=== PATIENT | female | born 1940 | race Caucasian/White ===

== ENCOUNTER 2016-07-06 14:01 | Emergency (ER) | payer OTHER ==
--- NOTE | 2016-07-06 14:31 | DIAGNOSTIC IMAGING REPORT ---
PROCEDURE: XR CHEST 1 VIEW INDICATION: TACHYCARDIA TECHNIQUE: Portable AP view 02:18 p.m. COMPARISON: None. FINDINGS: There is cephalization of the pulmonary vasculature. No focal infiltrates. The heart size is normal. IMPRESSION: 1. Cephalization of the pulmonary vasculature suggesting mild CHF.
--- NOTE | 2016-07-06 16:42 | ED NURSING NOTES ---
Clinical Report - Nurses [facility] [address] [place] [address] 07/06/2016 14:03 Patient: LILLIAM MELTON TRIAGE Triage time 14:Jul 06 2016. Acuity: LEVEL 3. Chief Complaint: (HBP and Tachycardia). Alert. BELKIS COMA SCORE: Kunkle Coma Scale: 15- eyes open spontaneously (4); best verbal response- oriented x 4 (5); best motor response- obeys commands (6). --14:17 Elvin Gandhi 14:02 07/06/16. BP: 196/135. HR: 147. RR: 16. O2 saturation: 100%. Temp: 98.2 F (oral). Pain level now: 0/10. --14:17 Elvin Gandhi. Weight: 91.6 kg measured. Height/Length: 67 inches Per Patient. BMI: 31.7. --14:06 Elvin Gandhi. Medications Levothyroxine Sodium 70 mcg, DAILY. --14:10 Nathanael Bertrand R.N. CITALOPRAM 40MG HS. Gabapentin Oral 300 mg, 3x a day. Hydrochlorothiazide Oral 25 mg, daily. Hydrocodone-Acetaminophen Oral, as needed. Omeprazole Oral 20 mg, daily. --14:10 Elvin Gandhi Atorvastatin Calcium Oral. --17:07 Nathanael Bertrand RRafalN. Donepezil HCl Oral (Tablet 5 mg) 1 tablet, daily. --17:11 Nathanael Bertrand R.NRafal The following entry was struck and corrected by Nathanael Bertrand R.N., 17:10 (07/06/16) Reason for correction - other(correction). <<STRICKEN ENTRY-- Levothyroxine Sodium 75MCG, DAILY. --14:10 Elvin Gandhi --END STRIKE>> The following entry was struck by Nathanael Bertrand R.N., 17:08 (07/06/16) Reason - other. <<STRICKEN ENTRY-- Simvastatin Oral 40 mg, daily. --14:10 Elvin Gandhi --END STRIKE>>. Allergies Iodine. Penicillins. Shellfish-derived Products. Sulfa Drugs. --14:10 Elvin Gandhi. History Historian: patient. Arrived (MEDIC 64) and accompanied by family. Primary physician (none). ( Tachycardia. When a visiting home health pediatric physical therapy assistant paid a visit today, found her BP elevated and pt in tachycardia, she called EMS.). This started just prior to arrival and today. Treatment COMMUNITY HEALTH CONSULTANT: (IV start in the field by EMS). PAST MEDICAL HX: Hypertension. SURGERY HX: Had hysterectomy. SOCIAL HX: Former smoker, end date 1966. No alcohol use or drug use. No infectious disease exposure. ABUSE ASSESSMENT: No report of abuse. FALL RISK ASSESSMENT: Fall risk assessment completed. No fall risk identified. NUTRITIONAL RISK ASSESSMENT: The nutritional risk assessment revealed no deficiencies. FUNCTIONAL ASSESSMENT: Functional assessment: no impairments noted. LEARNING NEEDS ASSESSMENT: The learning needs assessment revealed no barriers. SKIN INTEGRITY ASSESSMENT: Skin integrity risk assessment completed. No skin integrity risk identified. --14:17 Elvin Gandhi. PROBLEMS: Thyroid Disease. --14:11 Elvin Gandhi. Interventions ID and allergy band on patient. To treatment room. --14:17 Elvin Gandhi. PHYSICAL ASSESSMENT To room via stretcher. GENERAL / NEURO / PSYCH: Alert. Oriented X 4. HEENT: No facial asymmetry noted. Mucous membranes are pink. RESPIRATORY: Respirations not labored. CVS: Cardiac rhythm: sinus tachycardia. GI / : Abdomen nontender. SKIN: Skin intact. Skin is warm and dry. Normal skin turgor. --14:18 Elvin Gandhi. NURSING PROGRESS NOTES teletypesetter monitor, pulse oximeter and NIBP monitor placed on patient; teletypesetter monitor- Lead II and V1; monitor alarms on. Reassurance given to the patient. Patient identifiers checked. Call light placed in reach. Side rails up x 2. Bed placed in lowest position. Brakes of bed on. Patient ready for evaluation- chart flagged and ED physician notified. --14:19 Elvin Gandhi 14:10 07/06/2016 Site #1 started prior to arrival by EMS via IV in the left forearm with an 20g angiocath, with aseptic technique and good blood return. --14:25 Elvin Gandhi 14:12 07/06/2016 Started bag #1 1000 mL IV Fluids IV NS (Saline); at 1000 mL/hr over 4 hour(s) via site #1 via IV pump. Allergies verified and confirmed 5 rights. IV patency established. IV site checked: no pain, redness, or swelling. IV flushed thoroughly pre- and post-medication administration (Field start bag by EMS). Elvin Gandhi --14:27 Evlin Gandhi 14:25 07/06/2016 Metoprolol (Metoprolol Tartrate) IVP 5 mg given over 2 minute(s) via site #1. Allergies verified and confirmed 5 rights. IV patency established. IV site checked: no pain, redness, or swelling. IV flushed thoroughly pre- and post-medication administration. IVP given by RN. Elvin Gandhi --14:26 Elvin Gandhi EKG time: (1405). --14:31 Melonie Arias ER Tech1 EKG was ordered, performed by a tech and shown to the ED physician. --14:31 Melonie Arias ER Tech1 14:45 07/06/2016 IV Fluids IV NS Bag Change: bag #2 infused. Total amount infused: 1000. STARTED bag #2 at 1000 mL/hr via IV pump. Confirmed 5 rights. IV patency established. IV site checked: no pain, redness, or swelling. IV flushed thoroughly. --14:50 Nathanael Bertrand, RRafalNRafal 14:46 07/06/2016 Metoprolol (Metoprolol Tartrate) IVP 5 mg given over 2 minute(s) via site #1. Allergies verified and confirmed 5 rights. IV patency established. IV site checked: no pain, redness, or swelling. IV flushed thoroughly pre- and post-medication administration. IVP given by RN. --14:51 Nathanael Bertrand R.N. 15:32 07/06/2016 Metoprolol (Metoprolol Tartrate) IVP 5 mg given over 5 minute(s) via site #1. Allergies verified and confirmed 5 rights. IV patency established. IV site checked: no pain, redness, or swelling. IV flushed thoroughly pre- and post-medication administration. IVP given by RN. --15:32 Janice Quinteros R.N. 15:45 07/06/2016 Metoprolol (Metoprolol Tartrate) IVP 5 mg given over 2 minute(s) via site #1. Allergies verified and confirmed 5 rights. IV patency established. IV site checked: no pain, redness, or swelling. IV flushed thoroughly pre- and post-medication administration. IVP given by RN. --21:35 Nathanael Bertrand R.N. 15:45 07/06/2016 IV Fluids IV NS Discontinued: bag #2 infused. Total amount infused: 1000 mL. IV patency established. IV site checked: no pain, redness, or swelling. IV flushed thoroughly. --21:37 Nathanael Bertrand R.N. 16:47 07/06/2016 Diltiazem IVP 10 mg given over 2 minute(s) via site #1. Allergies verified and confirmed 5 rights. IV patency established. IV site checked: no pain, redness, or swelling. IV flushed thoroughly pre- and post-medication administration. IVP given by RN. --17:02 Nathanael Bertrand R.N. 16:50 07/06/16. EKG time: (1647). EKG was performed by a tech and shown to the ED physician. --16:50 Robert Magallon 17:06 07/06/2016 Nitrofurantoin PO Capsules 100 mg given. Allergies verified and confirmed 5 rights. --17:06 Nathanael Bertrand R.N. 17:06 07/06/2016 Aspirin PO Tablets 325 mg given. Allergies verified and confirmed 5 rights. --17:06 Nathanael Bertrand R.N. 17:20 07/06/2016 Site #1 removed upon discharge. Catheter intact. Manual pressure, pressure dressing and bandaid applied. --21:38 Nathanael Bertrand R.N. DISPOSITION / DISCHARGE Departure time: 1730. --21:29 Nathanael Bertrand R.N. 17:25 07/06/16. BP: 188/96. HR: 74. RR: 16. O2 saturation: 98%. Temp: 98.2 F (oral). Pain level now: 0/10. --21:31 Nathanael Bertrand R.N. Condition at departure: improved. No learning barriers present. Discharge instructions provided and reviewed with the patient, spouse and family. Reviewed medication(s) (prescription given to pt. continue taking your usual prescribed medications). Reviewed referral to family practice for followup. Patient, spouse and family verbalized understanding. Written instructions provided in Welsh. The patient was discharged by the physician. She was discharged home and accompanied by family. She left the Emergency Department in a wheelchair and via private vehicle. Family member driving. --21:33 Nathanael Bertrand R.N. Locked/Released at 07/06/2016 21:38 by Nathanael Bertrand R.N.
--- NOTE | 2016-07-06 16:42 | ED ORDER SUMMARY ---
..... Patient: LILLIAM MELTON OrderSheet [facility] VisitID: [id number] [address] [place] [address] 76y, F Registration Date/Time: 07/06/2016 ORDER SHEET Weight: 91.6 kg (measured) Allergies: Iodine, Penicillins, Shellfish-derived Products, Sulfa Drugs GENERAL ORDERS: Chest 1V Urgent (14:05 07/06/2016 Bill Bray) (Ack 14:06 Ranner) (14:48 Ricarda R.N.) Senior Controls Analyst (Continuous) (tachycardia) (14:05 07/06/2016 Bill Bray) (Ack 14:06 Ranner) (14:06 STERLINGoerner) CBC w Diff Urgent (14:05 07/06/2016 Bill Bray) (Ack 14:06 Jaylin) (14:45 KHoerner) CMP Urgent (14:05 07/06/2016 Bill Bray) (Ack 14:06 Ranner) (14:45 KHoerner) UA-Culture if indicated Urgent (14:05 07/06/2016 Bill Bray) (Ack 14:06 Jaylin) (14:45 KHoerner) PT with INR Urgent (14:05 07/06/2016 Bill Bray) (Ack 14:06 Ranner) (14:45 KHoerner) Troponin-I Urgent (14:05 07/06/2016 Bill Bray) (Ack 14:06 Ranner) (14:45 KHoerner) TSH Urgent (14:05 07/06/2016 Bill Bray) (Ack 14:06 Jaylin) (14:45 KHoerner) Pulse oximeter (14:05 07/06/2016 Bill Bray) (Ack 14:06 Jaylin) (14:06 STERLINGoerner) EKG - ER Stat (14:05 07/06/2016 Bill Bray) (Ack 14:06 Jaylin) (14:06 STERLINGoerner) EKG - ER Repeat Stat (16:41 07/06/2016 Bill Bray) (Ack 16:42 Jaylin) (16:50 Jaylin) MEDICATION ORDERS: Nitrofurantoin PO 100 mg (NOW) (16:37 07/06/2016 Bill Bray) (17:06 Ricarda R.N.) Aspirin PO 325 mg (Do not crush or chew, NOW) (16:50 07/06/2016 Bill Bray) (17:06 Ricarda R.N.) IV FLUIDS: IV NS : initial bolus 500 mL (1000 mL/hr), then none - for X1 (NOW) (14:05 07/06/2016 Bill Bray) (14:27 Haily) Metoprolol IV 5 mg (HIGH ALERT MEDICATION, NOW) (14:24 07/06/2016 Haily verbal order read back to Bill Bray) (14:26 Haily) Metoprolol IV 5 mg (HIGH ALERT MEDICATION, NOW) (14:50 07/06/2016 Ricarda Gutiérrez verbal order read back to Bill Bray) (14:51 Ricarda Lemus.) Metoprolol IV 5 mg (HIGH ALERT MEDICATION, NOW) (15:17 07/06/2016 Bill Bray) (Ack 15:25 Parminder R.NRafal) (15:32 Parminder WestfallN.) Metoprolol IV 5 mg (HIGH ALERT MEDICATION, NOW) (15:37 07/06/2016 Bill Bray) (21:35 Ricarda Hu.N.) Diltiazem IV 10 mg (HIGH ALERT MEDICATION, NOW) (16:09 07/06/2016 Bill Bray) (17:02 Ricarda R.N.) ORDER SHEET NOTES: [Electronically signed by Nathanael Bertrand R.N. (21:38 07/06/2016)] [Electronically signed by Luis Dalton Dr. (17:25 07/10/2016)] [Electronically locked/signed by Nathanael Bertrand R.N. (21:38 07/06/2016)]
--- NOTE | 2016-07-06 16:42 | ED CLINICAL REPORT ---
Clinical Report - Physicians/Mid Levels [facility] [address] [place] [address] 07/06/2016 14:03 Patient: LILLIAM MELTON Arrived- By ambulance. Historian- patient and EMS personnel. HISTORY OF PRESENT ILLNESS Chief Complaint: FAST HEART RATE. Modifying factors. Not worsened by anything. Not relieved by anything. It is described as (fast heart rate). This started unknown and is still present. It was abrupt in onset and has been constant but is not gone now. No chest pain or discomfort, difficulty breathing, sweating episodes or fainting episodes. No dizziness, tingling or muscle spasms. ( reports no symptoms. states that she didn't even know her heart was beating so fast.). Similar symptoms previously: None. Recent medical care: Not recently seen/assessed. REVIEW OF SYSTEMS No fever, chills, nausea or vomiting. All systems otherwise negative, except as recorded above. PAST HISTORY See nurses notes. Medications: CITALOPRAM 40MG HS. Gabapentin Oral 300 mg, 3x a day. Hydrochlorothiazide Oral 25 mg, daily. Hydrocodone-Acetaminophen Oral, as needed. Levothyroxine Sodium 75MCG, DAILY. Omeprazole Oral 20 mg, daily. Simvastatin Oral 40 mg, daily. Allergies: Iodine. Penicillins. Shellfish-derived Products. Sulfa Drugs. SOCIAL HISTORY Former smoker. No alcohol use or drug use. Is a local resident. ADDITIONAL NOTES The nursing notes have been reviewed. PHYSICAL EXAM Vital Signs: 07/06/2016 14:02 BP: 196/135. HR: 147. RR: 16. O2 saturation: 100%. Temp: 98.2 F. Pain level now: 0/10. Oxygen saturation normal. Appearance: Alert. Oriented X3. No acute distress. Eyes: Pupils equal, round and reactive to light. Eyes normal inspection. ENT: Ears normal. Nose normal. Neck: Normal inspection. Neck supple. CVS: Tachycardia. Abnormal rhythm. Heart sounds normal. Pulses normal. Respiratory: No respiratory distress. Breath sounds normal. Chest nontender. No rales, rhonchi or wheezes. Abdomen: Soft and nontender. Bowel sounds normal. No mass. Skin: Skin warm and dry. Normal skin color. No rash. Normal skin turgor. Extremities: Extremities exhibit normal ROM. No lower extremity edema. Neuro: Oriented X 3. No motor deficit. No sensory deficit. LABS, X-RAYS, AND EKG EKG: Narrow-complex tachycardia (SVT 147). Normal QRS complex. Normal axis. Normal ST and T waves, QT and QTc. Changes present when compared to prior EKG. (only SVT is new on EKG. other parameters appear unchanged.). The study has been interpreted contemporaneously. The study has been independently viewed by me. The EKG appears to be a good tracing. EKG #2: No acute ischemia. Narrow-complex tachycardia. Atrial flutter. Normal QRS complex. Normal axis. Normal ST and T waves, QT and QTc. The study has been interpreted contemporaneously by me. The study has been independently viewed by me. The EKG appears to be a good tracing. (rate controlled.). Chest X-ray: (PROCEDURE: XR CHEST 1 VIEW INDICATION: TACHYCARDIA TECHNIQUE: Portable AP view 02:18 p.m. COMPARISON: None. FINDINGS: There is cephalization of the pulmonary vasculature. No focal infiltrates. The heart size is normal. IMPRESSION: 1. Cephalization of the pulmonary vasculature suggesting mild CHF.). Views: PA. The X-rays were independently viewed by me, interpreted by the radiologist and discussed with the radiologist. Laboratory Tests: UA-Culture if indicated: (BEBO: 07/06/2016 14:30) ( MsgRcvd 07/06/2016 15:07) Final results Test Result Flag Units (Reference) URINE COLOR STRAW URINE APPEARANCE CLEAR URINE GLUCOSE NEGATIVE (NEGATIVE) URINE BILIRUBIN NEGATIVE (NEGATIVE) URINE KETONE NEGATIVE (NEGATIVE) URINE SPECIFIC GRAVITY 1.010 (1.010-1.030) URINE PH 7.0 (5.0-8.0) URINE PROTEIN NEGATIVE (NEGATIVE) URINE UROBILINOGEN 0.2 EU/dL (0.2-1.0) URINE NITRITE NEGATIVE (NEGATIVE) URINE BLOOD NEGATIVE (NEGATIVE) URINE LEUK ESTERASE POSITIVE (NEGATIVE) URINE RBC 1-3 rbc/hpf (0-1) URINE WBC 10-15 wbc/hpf (0-1) URINE EPITHELIAL CELLS 1-3 EPI/hpf (0-5) URINE BACTERIA MODERATE (2+ TO 3+) (NONE SEEN) URINE COMMENT CULTURE INDICATED URINE CULTURES ARE SET-UP BASED ON THE FOLLOWING CRITERIA:POSITIVE NITRITEPOSITIVE LEUKOCYTE ESTERASEGREATER THAN 10 WHITE BLOOD CELLSMODERATE (2+) OR GREATER BACTERIA CBC w Diff: (BEBO: 07/06/2016 14:43) ( [facility] 07/06/2016 14:54) Final results Test Result Flag Units (Reference) WHITE BLOOD COUNT 7.1 K/uL (4.5-11.5) RED BLOOD COUNT 4.61 M/uL (4.00-5.20) HEMOGLOBIN 13.0 gm/dL (12.0-16.0) HEMATOCRIT 40.0 % (36.0-46.0) MEAN CELL VOLUME 87 fL (80-100) MEAN CORPUSCULAR HGB 28 pg (26-34) MEAN CORPUSCULAR HGB CONC 33 g/dL (31-37) RED CELL DISTRIBUTION WIDTH 14.5 % (11.6-14.8) PLATELET COUNT 337 K/uL (150-400) NEUTROPHIL % 63.2 % (50-75) LYMPH % 27.3 % (25-40) MONO % 6.4 % (3-14) EOSINOPHIL % 1.9 % (0-4) BASOPHIL % 1.2 % (0-2) PT with INR: (BEBO: 07/06/2016 14:43) ( [facility] 07/06/2016 15:06) Final results Test Result Flag Units (Reference) INR 1.0 (0.8-1.2) Low Intensity Therapy: INR 1.5-2.0 PT range 18.5-23.1Mod.Intensity Therapy: INR 2.0-3.0 PT range 23.1-31.5High Intensity Therapy: INR 2.5-3.5 PT range 27.4-35.5High Intensity Therapy 2: INR 3.0-4.0 PT range 31.5-39.3 CMP: (BEBO: 07/06/2016 14:43) ( [facility] 07/06/2016 15:30) Final results Test Result Flag Units (Reference) GLUCOSE 92 mg/dL (70-110) BUN 9 mg/dL (7-18) CREATININE 0.7 mg/dL (0.6-1.3) Estimated GFR >60 mL/min Estimated GFR- >60 mL/min Note: Persistent reduction over 3 months in eGFR<60 mL/min/1.73 m2 defines CKD. Patients with eGFR values>=60 mL/min/1.73 m2 may also have CKD if evidence ofpersistent proteinuria. Additional information may be foundat www.kidney.org. SODIUM 143 mmol/L (136-145) POTASSIUM 3.8 mmol/L (3.5-5.1) CHLORIDE 105 mmol/L (98-107) CARBON DIOXIDE 28 mmol/L (21-32) CALCIUM 8.6 mg/dL (8.5-10.1) TOTAL PROTEIN 7.4 g/dL (6.4-8.2) ALBUMIN 3.6 g/dL (3.3-5.0) BILIRUBIN, TOTAL 0.6 mg/dL (0.0-1.0) ALKALINE PHOSPHATASE 108 U/L (46-116) AST (SGOT) 16 U/L (15-37) ALT (SGPT) 17 U/L (12-78) TROPONIN I <0.05 ng/mL (0.00-1.5) TROPONIN REFERENCE RANGE:<0.1 NEGATIVE0.1-1.5 INDETERMINANT>1.5 POSITIVE THYROID STIMULATING HORMONE 5.004 H uIU/mL (0.30-3.74) Culture, Urine: (BEBO: 07/06/2016 14:30) ( MsgRcvd 07/08/2016 11:26) Final results Test Result Flag Units (Reference) CULTURE, URINE DATE: 07/08/16 NO GROWTH AT:: NO GROWTH AT 2 DAYS PRELIM REPORT: FINAL REPORT . PROGRESS AND PROCEDURES Course of Care: he patient is a pleasant 76-year-old female presenting for evaluation of rapid heart rate. On examination, patient has atrial fibrillation. EKG is obtained and noted to be atrial fibrillation with rapid ventricular response. Patientwill be evaluated with laboratory studies for evaluation of the patient's age fibrillation. No other abnormalities noted. Patient's vital signs are within normal limits. No evidence of hemodynamic instability at this time. Patient is agreeable to the treatment and plan. We'll monitor closely. Had long discussion with patient in regards to symptoms at this time. Rate control will be the goal at this time. on initial presentation, patient did not report having history of atrial fibrillation however on follow-up questioning, the patient does state that she has atrophic ablation. Do not fill patient is a candidate for rhythm control. Patient will be instructed to take an aspirin regular dose daily and follow up with her primary care doctor and cardiology for further recommendations. Patient's rate was able to be controlled while here in the emergency department with several doses of metoprolol and Cardizem. Patient's rate was noted to bebetween 70 and 80 bpm upon discharge. Patient's hemodynamic status is up noted to be normal. Head discussion with patient in regards to her workup here in the emergency department including follow-up, home care, return precautionsmedications,and diagnosis. All questions have been answered. The patient isunderstanding of these instructions and was agreeable to them. Of note, patient with known hx of atrial fibrilation. After discussing the risk and benefit of anticoagulation therapy, felt full dose aspirin to be the best choice. Was unclear why patient not on blood thinners in the past and would defer to patient' PCP. There could be a serious reason for not being on anticoagulation such as increased bleeding risk. Patient is unsure why she is not on any anticoagulation at this time but will discuss with her doctor. Critical care performed (40 minutes). Time is exclusive of separately billable procedures. Time includes: direct patient care, patient reassessment, coordination of patient care, review of patient's medical records, medical consultation and documentation of patient care. Disposition: Discharged. Condition: good. CLINICAL IMPRESSION 07/06/2016 14:02 BP: 196/135. HR: 147. RR: 16. O2 saturation: 100%. Temp: 98.2 F. Pain level now: 0/10. Hypertensive. Oxygen saturation normal. Paroxysmal supraventricular tachycardia (acute). Acute urinary tract infection. Hypothyroidism (acute subclinical). INSTRUCTIONS Warnings: GENERAL WARNINGS: Return or contact your physician immediately if your condition worsens or changes unexpectedly, if not improving as expected, or if other problems arise. SPECIFICALLY, return if you develop chest, neck, jaw, shoulder, arm, or back pain, difficulty breathing, a fluttering sensation in your chest, lightheadedness, fainting, excessive fatigue, or sudden sweating. Your Current Medications: CONTINUE TAKING THE FOLLOWING MEDICATIONS: CITALOPRAM 40MG HS*. Gabapentin Oral : 300 mg 3x a day. Hydrochlorothiazide Oral : 25 mg daily. Hydrocodone-Acetaminophen Oral : prn. Omeprazole Oral : 20 mg daily. Prescription Medications: Nitrofurantoin 100 mg: take 1 capsule orally every 8 hours for 5 days. No refill. (Disp 15 caps. Substitution allowed.) Diltiazem. Dispense ten (10). No refills. (60 mg PO one every 8 hours as needed for fast heart rate) OTC Medications: Aspirin 325 mg (available over the counter): take 1 orally every 24 hours. Dispense thirty (30). No refills. Follow-up: Return to the emergency department as needed. Follow up with your doctor in three days. Reason for referral: recheck today's concerns. Summary of care provided to patient via paper. Screening today revealed the patient's blood pressure to be in the normal range. The patient should follow up with a primary care provider for blood pressure management. Understanding of the discharge instructions verbalized by patient. Follow-up with: Jr Frazier MD, Cardiology, , [facility] - [facility], [address] [place] [address], [id number] Follow up in three days. Reason for referral: recheck today's concerns. Summary of care provided to patient via paper. (Electronically signed by Luis Dalton Dr. 07/10/2016 17:25)
--- NOTE | 2016-07-06 16:42 | ED NURSING NOTES ---
Clinical Report - Nurses [facility] [address] [place] [address] 07/06/2016 14:03 Patient: LILLIAM MELTON TRIAGE Triage time 14:Jul 06 2016. Acuity: LEVEL 3. Chief Complaint: (HBP and Tachycardia). Alert. BELKIS COMA SCORE: Naoma Coma Scale: 15- eyes open spontaneously (4); best verbal response- oriented x 4 (5); best motor response- obeys commands (6). --14:17 Elvin Gandhi 14:02 07/06/16. BP: 196/135. HR: 147. RR: 16. O2 saturation: 100%. Temp: 98.2 F (oral). Pain level now: 0/10. --14:17 Elvin Gandhi. Weight: 91.6 kg measured. Height/Length: 67 inches Per Patient. BMI: 31.7. --14:06 Elvin Gandhi. Medications Levothyroxine Sodium 70 mcg, DAILY. --14:10 Nathanael Bertrand R.N. CITALOPRAM 40MG HS. Gabapentin Oral 300 mg, 3x a day. Hydrochlorothiazide Oral 25 mg, daily. Hydrocodone-Acetaminophen Oral, as needed. Omeprazole Oral 20 mg, daily. --14:10 Elvin Gandhi Atorvastatin Calcium Oral. --17:07 Nathanael Bertrand RRafalN. Donepezil HCl Oral (Tablet 5 mg) 1 tablet, daily. --17:11 Nathanael Bertrand R.NRafal The following entry was struck and corrected by Nathanael Bertrand R.N., 17:10 (07/06/16) Reason for correction - other(correction). <<STRICKEN ENTRY-- Levothyroxine Sodium 75MCG, DAILY. --14:10 Elvin Gandhi --END STRIKE>> The following entry was struck by Nathanael Bertrand R.N., 17:08 (07/06/16) Reason - other. <<STRICKEN ENTRY-- Simvastatin Oral 40 mg, daily. --14:10 Elvin Gandhi --END STRIKE>>. Allergies Iodine. Penicillins. Shellfish-derived Products. Sulfa Drugs. --14:10 Elvin Gandhi. History Historian: patient. Arrived (MEDIC 64) and accompanied by family. Primary physician (none). ( Tachycardia. When a visiting home health secretary administrative assistant paid a visit today, found her BP elevated and pt in tachycardia, she called EMS.). This started just prior to arrival and today. 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 PAST MEDICAL HX: Hypertension. SURGERY HX: Had hysterectomy. SOCIAL HX: Former smoker, end date 1966. No alcohol use or drug use. No infectious disease exposure. ABUSE ASSESSMENT: No report of abuse. FALL RISK ASSESSMENT: Fall risk assessment completed. No fall risk identified. NUTRITIONAL RISK ASSESSMENT: The nutritional risk assessment revealed no deficiencies. FUNCTIONAL ASSESSMENT: Functional assessment: no impairments noted. LEARNING NEEDS ASSESSMENT: The learning needs assessment revealed no barriers. SKIN INTEGRITY ASSESSMENT: Skin integrity risk assessment completed. No skin integrity risk identified. --14:17 Elvin Gandhi. PROBLEMS: Thyroid Disease. --14:11 Elvin Gandhi. Interventions ID and allergy band on patient. To treatment room. --14:17 Elvin Gandhi. PHYSICAL ASSESSMENT To room via stretcher. GENERAL / NEURO / PSYCH: Alert. Oriented X 4. HEENT: No facial asymmetry noted. Mucous membranes are pink. RESPIRATORY: Respirations not labored. CVS: Cardiac rhythm: sinus tachycardia. GI / : Abdomen nontender. SKIN: Skin intact. Skin is warm and dry. Normal skin turgor. --14:18 Elvin Gandhi. NURSING PROGRESS NOTES alarm security or surveillance monitor, pulse oximeter and NIBP monitor placed on patient; teletypesetter monitor- Lead II and V1; monitor alarms on. Reassurance given to the patient. Patient identifiers checked. Call light placed in reach. Side rails up x 2. Bed placed in lowest position. Brakes of bed on. Patient ready for evaluation- chart flagged and ED physician notified. --14:19 Elvin Gandhi 14:10 07/06/2016 Site #1 started prior to arrival by EMS via IV in the left forearm with an 20g angiocath, with aseptic technique and good blood return. --14:25 Elvin Gandhi 14:12 07/06/2016 Started bag #1 1000 mL IV Fluids IV NS (Saline); at 1000 mL/hr over 4 hour(s) via site #1 via IV pump. Allergies verified and confirmed 5 rights. IV patency established. IV site checked: no pain, redness, or swelling. IV flushed thoroughly pre- and post-medication administration (Field start bag by EMS). Elvin Gandhi --14:27 Elvin Gandhi 14:25 07/06/2016 Metoprolol (Metoprolol Tartrate) IVP 5 mg given over 2 minute(s) via site #1. Allergies verified and confirmed 5 rights. IV patency established. IV site checked: no pain, redness, or swelling. IV flushed thoroughly pre- and post-medication administration. IVP given by RN. Elvin Gandhi --14:26 Elvin Gandhi EKG time: (1405). --14:31 Melonie Arias ER Tech1 EKG was ordered, performed by a tech and shown to the ED physician. --14:31 Melonie Arias ER Tech1 14:45 07/06/2016 IV Fluids IV NS Bag Change: bag #2 infused. Total amount infused: 1000. STARTED bag #2 at 1000 mL/hr via IV pump. Confirmed 5 rights. IV patency established. IV site checked: no pain, redness, or swelling. IV flushed thoroughly. --14:50 Nathanael Bertrand, RRafalNRafal 14:46 07/06/2016 Metoprolol (Metoprolol Tartrate) IVP 5 mg given over 2 minute(s) via site #1. Allergies verified and confirmed 5 rights. IV patency established. IV site checked: no pain, redness, or swelling. IV flushed thoroughly pre- and post-medication administration. IVP given by RN. --14:51 Nathanael Bertrand R.N. 15:32 07/06/2016 Metoprolol (Metoprolol Tartrate) IVP 5 mg given over 5 minute(s) via site #1. Allergies verified and confirmed 5 rights. IV patency established. IV site checked: no pain, redness, or swelling. IV flushed thoroughly pre- and post-medication administration. IVP given by RN. --15:32 Janice Quinteros R.N. 15:45 07/06/2016 Metoprolol (Metoprolol Tartrate) IVP 5 mg given over 2 minute(s) via site #1. Allergies verified and confirmed 5 rights. IV patency established. IV site checked: no pain, redness, or swelling. IV flushed thoroughly pre- and post-medication administration. IVP given by RN. --21:35 Nathanael Bertrand R.N. 15:45 07/06/2016 IV Fluids IV NS Discontinued: bag #2 infused. Total amount infused: 1000 mL. IV patency established. IV site checked: no pain, redness, or swelling. IV flushed thoroughly. --21:37 Nathanael Bertrand R.N. 16:47 07/06/2016 Diltiazem IVP 10 mg given over 2 minute(s) via site #1. Allergies verified and confirmed 5 rights. IV patency established. IV site checked: no pain, redness, or swelling. IV flushed thoroughly pre- and post-medication administration. IVP given by RN. --17:02 Nathanael Bertrand R.N. 16:50 07/06/16. EKG time: (1647). EKG was performed by a tech and shown to the ED physician. --16:50 Robert Magallon 17:06 07/06/2016 Nitrofurantoin PO Capsules 100 mg given. Allergies verified and confirmed 5 rights. --17:06 Nathanael Bertrand R.N. 17:06 07/06/2016 Aspirin PO Tablets 325 mg given. Allergies verified and confirmed 5 rights. --17:06 Nathanael Bertrand R.N. 17:20 07/06/2016 Site #1 removed upon discharge. Catheter intact. Manual pressure, pressure dressing and bandaid applied. --21:38 Nathanael Bertrand R.N. DISPOSITION / DISCHARGE Departure time: 1730. --21:29 Nathanael Bertrand R.N. 17:25 07/06/16. BP: 188/96. HR: 74. RR: 16. O2 saturation: 98%. Temp: 98.2 F (oral). Pain level now: 0/10. --21:31 Nathanael Bertrand R.N. Condition at departure: improved. No learning barriers present. Discharge instructions provided and reviewed with the patient, spouse and family. Reviewed medication(s) (prescription given to pt. continue taking your usual prescribed medications). Reviewed referral to family practice for followup. Patient, spouse and family verbalized understanding. Written instructions provided in Croatian. The patient was discharged by the physician. She was discharged home and accompanied by family. She left the Emergency Department in a wheelchair and via private vehicle. Family member driving. --21:33 Nathanael Bertrand R.N. Locked/Released at 07/06/2016 21:38 by Nathanael Bertrand R.N.
--- NOTE | 2016-07-06 16:42 | ED ORDER SUMMARY ---
..... Patient: LILLIAM MELTON OrderSheet [facility] VisitID: [id number] [address] [place] [address] 76y, F Registration Date/Time: 07/06/2016 ORDER SHEET Weight: 91.6 kg (measured) Allergies: Iodine, Penicillins, Shellfish-derived Products, Sulfa Drugs GENERAL ORDERS: Chest 1V Urgent (14:05 07/06/2016 Bill Bray) (Ack 14:06 Ranner) (14:48 Ricarda R.N.) Arson Investigator (Continuous) (tachycardia) (14:05 07/06/2016 Bill Bray) (Ack 14:06 Ranner) (14:06 STERLINGoerner) CBC w Diff Urgent (14:05 07/06/2016 Bill Bray) (Ack 14:06 Jaylin) (14:45 KHoerner) CMP Urgent (14:05 07/06/2016 Bill Bray) (Ack 14:06 Ranner) (14:45 KHoerner) UA-Culture if indicated Urgent (14:05 07/06/2016 Bill Bray) (Ack 14:06 Jaylin) (14:45 KHoerner) PT with INR Urgent (14:05 07/06/2016 Bill Bray) (Ack 14:06 Ranner) (14:45 KHoerner) Troponin-I Urgent (14:05 07/06/2016 Bill Bray) (Ack 14:06 Ranner) (14:45 KHoerner) TSH Urgent (14:05 07/06/2016 Bill Bray) (Ack 14:06 Jaylin) (14:45 KHoerner) Pulse oximeter (14:05 07/06/2016 Bill Bray) (Ack 14:06 Jaylin) (14:06 STERLINGoerner) EKG - ER Stat (14:05 07/06/2016 Bill Bray) (Ack 14:06 Jaylin) (14:06 STERLINGoerner) EKG - ER Repeat Stat (16:41 07/06/2016 Bill Bray) (Ack 16:42 Jaylin) (16:50 Jaylin) MEDICATION ORDERS: Nitrofurantoin PO 100 mg (NOW) (16:37 07/06/2016 Bill Bray) (17:06 Ricarda R.N.) Aspirin PO 325 mg (Do not crush or chew, NOW) (16:50 07/06/2016 Bill Bray) (17:06 Ricarda R.N.) IV FLUIDS: IV NS : initial bolus 500 mL (1000 mL/hr), then none - for X1 (NOW) (14:05 07/06/2016 Bill Bray) (14:27 Haily) Metoprolol IV 5 mg (HIGH ALERT MEDICATION, NOW) (14:24 07/06/2016 Haily verbal order read back to Bill Bray) (14:26 Haily) Metoprolol IV 5 mg (HIGH ALERT MEDICATION, NOW) (14:50 07/06/2016 Ricarda Gutiérrez verbal order read back to Bill Bray) (14:51 Ricarda Lemus.) Metoprolol IV 5 mg (HIGH ALERT MEDICATION, NOW) (15:17 07/06/2016 Bill Bray) (Ack 15:25 Parminder R.NRafal) (15:32 Parminder WestfallN.) Metoprolol IV 5 mg (HIGH ALERT MEDICATION, NOW) (15:37 07/06/2016 Bill Bray) (21:35 Ricarda Hu.N.) Diltiazem IV 10 mg (HIGH ALERT MEDICATION, NOW) (16:09 07/06/2016 Bill Bray) (17:02 Ricarda R.N.) ORDER SHEET NOTES: [Electronically signed by Nathanael Bertrand R.N. (21:38 07/06/2016)] [Electronically signed by Luis Dalton Dr. (17:25 07/10/2016)] [Electronically locked/signed by Nathanael Bertrand R.N. (21:38 07/06/2016)]
--- NOTE | 2016-07-10 17:25 | ED DISCHARGE INSTRUCTIONS ---
Patient: LILLIAM MELTON General Instructions [facility] VisitID: [id number] [address] [place] [address] 76y, F Registration Date/Time: 07/06/2016 07/06/2016 14:02 BP: 196/135. HR: 147. RR: 16. O2 saturation: 100%. Temp: 98.2 F. Pain level now: 0/10. Hypertensive. Oxygen saturation normal. Paroxysmal supraventricular tachycardia (acute). Acute urinary tract infection. Hypothyroidism (acute subclinical). INSTRUCTIONS Warnings: GENERAL WARNINGS: Return or contact your physician immediately if your condition worsens or changes unexpectedly, if not improving as expected, or if other problems arise. SPECIFICALLY, return if you develop chest, neck, jaw, shoulder, arm, or back pain, difficulty breathing, a fluttering sensation in your chest, lightheadedness, fainting, excessive fatigue, or sudden sweating. Your Current Medications: CONTINUE TAKING THE FOLLOWING MEDICATIONS: CITALOPRAM 40MG HS*. Gabapentin Oral : 300 mg 3x a day. Hydrochlorothiazide Oral : 25 mg daily. Hydrocodone-Acetaminophen Oral : prn. Omeprazole Oral : 20 mg daily. Prescription Medications: Nitrofurantoin 100 mg: take 1 capsule orally every 8 hours for 5 days. No refill. (Disp 15 caps. Substitution allowed.) Diltiazem. Dispense ten (10). No refills. (60 mg PO one every 8 hours as needed for fast heart rate) OTC Medications: Aspirin 325 mg (available over the counter): take 1 orally every 24 hours. Dispense thirty (30). No refills. Follow-up: Return to the emergency department as needed. Follow up with your doctor in three days. Reason for referral: recheck today's concerns. Summary of care provided to patient via paper. Screening today revealed the patient's blood pressure to be in the normal range. The patient should follow up with a primary care provider for blood pressure management. Understanding of the discharge instructions verbalized by patient. Follow-up with: Jr Frazier MD, Cardiology, , [facility] - Cardiology, [address] [place] [address], [id number] Follow up in three days. Reason for referral: recheck today's concerns. Summary of care provided to patient via paper. ADDITIONAL INFORMATION Tachycardia:P.A.T. (P.S.V.T.) P.A.T. stands for Paroxysmal Atrial Tachycardia (also called "P.S.V.T." or "Paroxysmal Supraventricular Tachycardia"). This means "sudden onset of fast heart beating." This may feel like your heart is racing or pounding. Because of the suddenness of onset, it is often scary but is usually not a dangerous condition. Episodes may last seconds, minutes or hours. This can occur in otherwise healthy persons who have used excessive amounts of stimulants such as tobacco or caffeine (coffee, tea, cola or medicines containing caffeine). Also certain hyng-fuh-errolui cold & sinus remedies, as well as diet pills and some herbal supplements can over-stimulate the heart. Obviously, cocaine and amphetamine are the most powerful heart stimulants and must be avoided. Overactive thyroid and some types of heart valve disorders can also cause P.A.T. If your doctor suspects this, tests may be done to find out if this is the cause in your case. Home Care: 1) Rest today and resume your normal activities as soon as you are feeling back to normal. Sometimes a prolonged episode of P.A.T. can leave you feeling tired and weak for a while. 2) To prevent a recurrence, avoid ALL the stimulants mentioned above. If you have trouble eliminating coffee, switch to decaf. Smokers should make every effort to stop or at least switch to a filtered, low-nicotine type of cigarette while you look for a stop-smoking program. 3) If another episode of P.A.T. occurs, lie down and try to remain calm. These spells usually stop by themselves within a few minutes. Follow Up with your doctor within the week or as instructed by our staff. Get Prompt Medical Attention if any of the following occur: -- Chest, shoulder, arm, neck or back pain -- Shortness of breath -- Weakness -- Fainting or light-headedness -- Fast or pounding heartbeat that lasts over 20 minutes Bladder Infection,Female (Adult) A bladder infection ("cystitis" or "UTI") usually causes a constant urge to urinate and a burning when passing urine. Urine may be cloudy, smelly or dark. There may be pain in the lower abdomen. A bladder infection occurs when bacteria from the vaginal area enter the bladder opening (urethra). This can occur from sexual intercourse, wearing tight clothing, dehydration and other factors. Home Care: Drink lots of fluids (at least 6-8 glasses a day, unless you must restrict fluids for other medical reasons). This will force the medicine into your urinary system and flush the bacteria out of your body. Avoid sexual intercourse until your symptoms are gone. Avoid caffeine, alcohol and spicy foods. These can irritate the bladder. A bladder infection is treated with antibiotics. You may also be given Pyridium (generic = phenazopyridine) to reduce the burning sensation. This medicine will cause your urine to become a bright orange color. The orange urine may stain clothing. You may wear a pad or panty-liner to protect clothing. Preventing Future Infections: Always wipe from front to back after a bowel movement. Keep the genital area clean and dry. Drink plenty of fluids each day to avoid dehydration. Both sexual partners should wash before intercourse. Urinate right after intercourse to flush out the bladder. Wear cotton underwear and cotton-lined panty hose; avoid tight-fitting pants. If you are on control pills and are having frequent bladder infections, discuss with your doctor. Follow Up: Return to this facility or see your doctor if ALL symptoms are not gone after three days of treatment. Get Prompt Medical Attention if any of the following occur: Fever of 100.4F (38C) or higher, or as directed by your healthcare provider No improvement by the third day of treatment Increasing back or abdominal pain Repeated vomiting; unable to keep medicine down Weakness, dizziness or fainting Vaginal discharge Pain, redness or swelling in the labia (outer vaginal area) Hypothyroidism You have been diagnosed with hypothyroidism. This means your thyroid gland is not producing enough thyroid hormone. This hormone is important to body growth and metabolism. If you don't have enough, many body processes slow down, causing mental and physical sluggishness. A variety of other symptoms may occur and vary from mild to severe. The most severe form of this illness is called myxedema. Signs Of Hyperthyroidism (too much thyroid hormone, which can be a side effect of treatment for low thyroid): Restlessness, nervousness Increased appetite with weight loss Excess sweating Palpitations or irregular heartbeat Feeling overheated Signs Of Hypothyroidism (too little thyroid hormone): Fatigue or sluggishness Difficulty concentrating or thinking clearly; forgetfulness Dry skin, hair loss Depression Unexpected weight gain Feeling cold, or cold hands and/or feet Home Care: Take your medicine exactly as directed at the same time every day. Don't take thyroid pills with soy milk since this interferes with absorption. After taking your thyroid medicine: Wait 4 hours before eating or drinking anything that contains soy. Wait 4 hours before taking iron supplements, antacids that contain either calcium or aluminum hydroxide, or calcium supplements (regular amounts of cows milk are probably okay). Do not stop treatment on your own. If you do, your symptoms will return. Eat a high-fiber, low-calorie diet to relieve constipation and maintain a healthy weight. Get regular exercise. Talk to your doctor about an exercise program that is right for you. Follow Up with your doctor or as advised by our staff. Your thyroid level will need to be monitored for the rest of your life. During your routine visits, tell your doctor about any symptoms such as the ones listed below. Get Prompt Medical Attention if any of the following occur: Extreme fatigue Puffy hands, face, or feet Chest pain or trouble breathing Palpitations or irregular heartbeat Confusion or loss of consciousness Nitrofurantoin, Nitrofurantoin, Macrocrystalline Oral capsule What is this medicine? NITROFURANTOIN (nemesio osorio) is an antibiotic. It is used to treat urinary tract infections. How should I use this medicine? Take this medicine by mouth with a glass of water. Follow the directions on the prescription label. Take this medicine with food or milk. Take your doses at regular intervals. Do not take your medicine more often than directed. Do not stop taking except on your doctor's advice. Talk to your district home economics agent regarding the use of this medicine in children. While this drug may be prescribed for selected conditions, precautions do apply. What side effects may I notice from receiving this medicine? Side effects that you should report to your doctor or health critical care registered nurse as soon as possible: allergic reactions like skin rash or hives, swelling of the face, lips, or tongue chest pain cough difficulty breathing dizziness, drowsiness fever or infection joint aches or pains pale or blue-tinted skin redness, blistering, peeling or loosening of the skin, including inside the mouth tingling, burning, pain, or numbness in hands or feet unusual bleeding or bruising unusually weak or tired yellowing of eyes or skin Side effects that usually do not require medical attention (report to your doctor or health critical care registered nurse if they continue or are bothersome): dark urine diarrhea headache loss of appetite nausea or vomiting temporary hair loss What may interact with this medicine? antacids containing magnesium trisilicate probenecid quinolone antibiotics like ciprofloxacin, lomefloxacin, norfloxacin and ofloxacin sulfinpyrazone What if I miss a dose? If you miss a dose, take it as soon as you can. If it is almost time for your next dose, take only that dose. Do not take double or extra doses. Where should I keep my medicine? Keep out of the reach of children. Store at room temperature between 15 and 30 degrees C (59 and 86 degrees F). Protect from light. Throw away any unused medicine after the expiration date. What should I tell my health care provider before I take this medicine? They need to know if you have any of these conditions: anemia diabetes [id number] dehydrogenase deficiency kidney disease liver disease lung disease other chronic illness an unusual or allergic reaction to nitrofurantoin, other antibiotics, other medicines, foods, dyes or preservatives or trying to get breast-feeding What should I watch for while using this medicine? Tell your doctor or health critical care registered nurse if your symptoms do not improve or if you get new symptoms. Drink several glasses of water a day. If you are taking this medicine for a long time, visit your doctor for regular checks on your progress. If you are diabetic, you may get a false positive result for sugar in your urine with certain brands of urine tests. Check with your doctor. Diltiazem Hydrochloride Oral tablet What is this medicine? DILTIAZEM (dil OSIRIS a zem) is a calcium-channel suzanne. It affects the amount of calcium found in your heart and muscle cells. This relaxes your blood vessels, which can reduce the amount of work the heart has to do. This medicine is used to treat chest pain caused by angina. How should I use this medicine? Take this medicine by mouth with a glass of water. Follow the directions on the prescription label. This medicine is usually taken before meals and at bedtime. Take your doses at regular intervals. Do not take your medicine more often then directed. Do not stop taking except on the advice of your doctor or health critical care registered nurse. Talk to your district home economics agent regarding the use of this medicine in children. Special care may be needed. What side effects may I notice from receiving this medicine? Side effects that you should report to your doctor or health critical care registered nurse as soon as possible: allergic reactions like skin rash, itching or hives, swelling of the face, lips, or tongue confusion, mental depression feeling faint or lightheaded, falls pinpoint red spots on the skin redness, blistering, peeling or loosening of the skin, including inside the mouth slow, irregular heartbeat swelling of the ankles, feet unusual bleeding or bruising Side effects that usually do not require medical attention (report to your doctor or health critical care registered nurse if they continue or are bothersome): change in sex drive or performance constipation or diarrhea flushing of the face headache nausea, vomiting tired or weak trouble sleeping What may interact with this medicine? Do not take this medicine with any of the following: cisapride hawthorn pimozide ranolazine red yeast rice This medicine may also interact with the following medications: buspirone carbamazepine cimetidine cyclosporine digoxin local anesthetics or general anesthetics lovastatin medicines for anxiety or difficulty sleeping like midazolam and triazolam medicines for high blood pressure or heart problems quinidine rifampin, rifabutin, or rifapentine What if I miss a dose? If you miss a dose, take it as soon as you can. If it is almost time for your next dose, take only that dose. Do not take double or extra doses. Where should I keep my medicine? Keep out of the reach of children. Store at room temperature between 20 and 25 degrees C (68 and 77 degrees F). Protect from light. Keep container tightly closed. Throw away any unused medicine after the expiration date. What should I tell my health care provider before I take this medicine? They need to know if you have any of these conditions: heart problems, low blood pressure, irregular heartbeat liver disease previous heart attack an unusual or allergic reaction to diltiazem, other medicines, foods, dyes, or preservatives or trying to get breast-feeding What should I watch for while using this medicine? Check your blood pressure and pulse rate regularly. Ask your doctor or health critical care registered nurse what your blood pressure and pulse rate should be and when you should contact him or her. You may feel dizzy or lightheaded. Do not drive, use machinery, or do anything that needs mental alertness until you know how this medicine affects you. To reduce the risk of dizzy or fainting spells, do not sit or stand up quickly, especially if you are an older patient. Alcohol can make you more dizzy or increase flushing and rapid heartbeats. Avoid alcoholic drinks. Aspirin Oral tablet What is this medicine? ASPIRIN ( pir in) is a pain reliever. It is used to treat mild pain and fever. This medicine is also used as directed by a doctor to prevent and to treat heart attacks, to prevent strokes, and to treat arthritis or inflammation. How should I use this medicine? Take this medicine by mouth with a glass of water. Follow the directions on the package or prescription label. You can take this medicine with or without food. If it upsets your stomach, take it with food. Do not take your medicine more often than directed. Talk to your district home economics agent regarding the use of this medicine in children. While this drug may be prescribed for children as young as 12 years of age for selected conditions, precautions do apply. Children and teenagers should not use this medicine to treat chicken pox or flu symptoms unless directed by a doctor. Patients over 65 years old may have a stronger reaction and need a smaller dose. What side effects may I notice from receiving this medicine? Side effects that you should report to your doctor or health critical care registered nurse as soon as possible: allergic reactions like skin rash, itching or hives, swelling of the face, lips, or tongue breathing problems changes in hearing, ringing in the ears confusion general ill feeling or flu-like symptoms pain on swallowing redness, blistering, peeling or loosening of the skin, including inside the mouth or nose signs and symptoms of bleeding such as bloody or black, tarry stools; red or dark-brown urine; spitting up blood or brown material that looks like coffee grounds; red spots on the skin; unusual bruising or bleeding from the eye, gums, or nose trouble passing urine or change in the amount of urine unusually weak or tired yellowing of the eyes or skin Side effects that usually do not require medical attention (report to your doctor or health critical care registered nurse if they continue or are bothersome): diarrhea or constipation nausea, vomiting stomach gas, heartburn What may interact with this medicine? Do not take this medicine with any of the following medications: cidofovir ketorolac probenecid This medicine may also interact with the following medications: alcohol alendronate bismuth subsalicylate flavocoxid herbal supplements like feverfew, garlic, pito, ginkgo biloba, horse chestnut medicines for diabetes or glaucoma like acetazolamide, methazolamide medicines for gout medicines that treat or prevent blood clots like enoxaparin, heparin, ticlopidine, warfarin other aspirin and aspirin-like medicines NSAIDs, medicines for pain and inflammation, like ibuprofen or naproxen pemetrexed sulfinpyrazone varicella live vaccine What if I miss a dose? If you are taking this medicine on a regular schedule and miss a dose, take it as soon as you can. If it is almost time for your next dose, take only that dose. Do not take double or extra doses. Where should I keep my medicine? Keep out of the reach of children. Store at room temperature between 15 and 30 degrees C (59 and 86 degrees F). Protect from heat and moisture. Do not use this medicine if it has a strong vinegar smell. Throw away any unused medicine after the expiration date. What should I tell my health care provider before I take this medicine? They need to know if you have any of these conditions: anemia asthma bleeding problems child with chickenpox, the flu, or other viral infection diabetes gout if you frequently drink alcohol containing drinks kidney disease liver disease low level of vitamin K lupus smoke tobacco stomach ulcers or other problems an unusual or allergic reaction to aspirin, tartrazine dye, other medicines, dyes, or preservatives or trying to get breast-feeding What should I watch for while using this medicine? If you are treating yourself for pain, tell your doctor or health critical care registered nurse if the pain lasts more than 10 days, if it gets worse, or if there is a new or different kind of pain. Tell your doctor if you see redness or swelling. Also, check with your doctor if you have a fever that lasts for more than 3 days. Only take this medicine to prevent heart attacks or blood clotting if prescribed by your doctor or health critical care registered nurse. Do not take aspirin or aspirin-like medicines with this medicine. Too much aspirin can be dangerous. Always read the labels carefully. This medicine can irritate your stomach or cause bleeding problems. Do not smoke cigarettes or drink alcohol while taking this medicine. Do not lie down for 30 minutes after taking this medicine to prevent irritation to your throat. If you are scheduled for any medical or dental procedure, tell your healthcare provider that you are taking this medicine. You may need to stop taking this medicine before the procedure. You have been given the following additional information: Pat (P.A.T.) Bladder Infection, Female (Adult) Hypothyroidism Nitrofurantoin, Nitrofurantoin, Macrocrystalline Oral capsule Diltiazem Hydrochloride Oral tablet Aspirin Oral tablet (Electronically signed by Luis Dalton Dr. 07/10/2016 17:25)
--- NOTE | 2016-07-10 17:25 | ED DISCHARGE INSTRUCTIONS ---
Patient: LILLIAM MELTON General Instructions [facility] VisitID: [id number] [address] [place] [address] 76y, F Registration Date/Time: 07/06/2016 07/06/2016 14:02 BP: 196/135. HR: 147. RR: 16. O2 saturation: 100%. Temp: 98.2 F. Pain level now: 0/10. Hypertensive. Oxygen saturation normal. Paroxysmal supraventricular tachycardia (acute). Acute urinary tract infection. Hypothyroidism (acute subclinical). INSTRUCTIONS Warnings: GENERAL WARNINGS: Return or contact your physician immediately if your condition worsens or changes unexpectedly, if not improving as expected, or if other problems arise. SPECIFICALLY, return if you develop chest, neck, jaw, shoulder, arm, or back pain, difficulty breathing, a fluttering sensation in your chest, lightheadedness, fainting, excessive fatigue, or sudden sweating. Your Current Medications: CONTINUE TAKING THE FOLLOWING MEDICATIONS: CITALOPRAM 40MG HS*. Gabapentin Oral : 300 mg 3x a day. Hydrochlorothiazide Oral : 25 mg daily. Hydrocodone-Acetaminophen Oral : prn. Omeprazole Oral : 20 mg daily. Prescription Medications: Nitrofurantoin 100 mg: take 1 capsule orally every 8 hours for 5 days. No refill. (Disp 15 caps. Substitution allowed.) Diltiazem. Dispense ten (10). No refills. (60 mg PO one every 8 hours as needed for fast heart rate) OTC Medications: Aspirin 325 mg (available over the counter): take 1 orally every 24 hours. Dispense thirty (30). No refills. Follow-up: Return to the emergency department as needed. Follow up with your doctor in three days. Reason for referral: recheck today's concerns. Summary of care provided to patient via paper. Screening today revealed the patient's blood pressure to be in the normal range. The patient should follow up with a primary care provider for blood pressure management. Understanding of the discharge instructions verbalized by patient. Follow-up with: Jr Frazier MD, Cardiology, , [facility] - Cardiology, [address] [place] [address], [id number] Follow up in three days. Reason for referral: recheck today's concerns. Summary of care provided to patient via paper. ADDITIONAL INFORMATION Tachycardia:P.A.T. (P.S.V.T.) P.A.T. stands for Paroxysmal Atrial Tachycardia (also called "P.S.V.T." or "Paroxysmal Supraventricular Tachycardia"). This means "sudden onset of fast heart beating." This may feel like your heart is racing or pounding. Because of the suddenness of onset, it is often scary but is usually not a dangerous condition. Episodes may last seconds, minutes or hours. This can occur in otherwise healthy persons who have used excessive amounts of stimulants such as tobacco or caffeine (coffee, tea, cola or medicines containing caffeine). Also certain [id number] cold & sinus remedies, as well as diet pills and some herbal supplements can over-stimulate the heart. Obviously, cocaine and amphetamine are the most powerful heart stimulants and must be avoided. Overactive thyroid and some types of heart valve disorders can also cause P.A.T. If your doctor suspects this, tests may be done to find out if this is the cause in your case. Home Care: 1) Rest today and resume your normal activities as soon as you are feeling back to normal. Sometimes a prolonged episode of P.A.T. can leave you feeling tired and weak for a while. 2) To prevent a recurrence, avoid ALL the stimulants mentioned above. If you have trouble eliminating coffee, switch to decaf. Smokers should make every effort to stop or at least switch to a filtered, low-nicotine type of cigarette while you look for a stop-smoking program. 3) If another episode of P.A.T. occurs, lie down and try to remain calm. These spells usually stop by themselves within a few minutes. Follow Up with your doctor within the week or as instructed by our staff. Get Prompt Medical Attention if any of the following occur: -- Chest, shoulder, arm, neck or back pain -- Shortness of breath -- Weakness -- Fainting or light-headedness -- Fast or pounding heartbeat that lasts over 20 minutes Bladder Infection,Female (Adult) A bladder infection ("cystitis" or "UTI") usually causes a constant urge to urinate and a burning when passing urine. Urine may be cloudy, smelly or dark. There may be pain in the lower abdomen. A bladder infection occurs when bacteria from the vaginal area enter the bladder opening (urethra). This can occur from sexual intercourse, wearing tight clothing, dehydration and other factors. Home Care: Drink lots of fluids (at least 6-8 glasses a day, unless you must restrict fluids for other medical reasons). This will force the medicine into your urinary system and flush the bacteria out of your body. Avoid sexual intercourse until your symptoms are gone. Avoid caffeine, alcohol and spicy foods. These can irritate the bladder. A bladder infection is treated with antibiotics. You may also be given Pyridium (generic = phenazopyridine) to reduce the burning sensation. This medicine will cause your urine to become a bright orange color. The orange urine may stain clothing. You may wear a pad or panty-liner to protect clothing. Preventing Future Infections: Always wipe from front to back after a bowel movement. Keep the genital area clean and dry. Drink plenty of fluids each day to avoid dehydration. Both sexual partners should wash before intercourse. Urinate right after intercourse to flush out the bladder. Wear cotton underwear and cotton-lined panty hose; avoid tight-fitting pants. If you are on control pills and are having frequent bladder infections, discuss with your doctor. Follow Up: Return to this facility or see your doctor if ALL symptoms are not gone after three days of treatment. Get Prompt Medical Attention if any of the following occur: Fever of 100.4F (38C) or higher, or as directed by your healthcare provider No improvement by the third day of treatment Increasing back or abdominal pain Repeated vomiting; unable to keep medicine down Weakness, dizziness or fainting Vaginal discharge Pain, redness or swelling in the labia (outer vaginal area) Hypothyroidism You have been diagnosed with hypothyroidism. This means your thyroid gland is not producing enough thyroid hormone. This hormone is important to body growth and metabolism. If you don't have enough, many body processes slow down, causing mental and physical sluggishness. A variety of other symptoms may occur and vary from mild to severe. The most severe form of this illness is called myxedema. Signs Of Hyperthyroidism (too much thyroid hormone, which can be a side effect of treatment for low thyroid): Restlessness, nervousness Increased appetite with weight loss Excess sweating Palpitations or irregular heartbeat Feeling overheated Signs Of Hypothyroidism (too little thyroid hormone): Fatigue or sluggishness Difficulty concentrating or thinking clearly; forgetfulness Dry skin, hair loss Depression Unexpected weight gain Feeling cold, or cold hands and/or feet Home Care: Take your medicine exactly as directed at the same time every day. Don't take thyroid pills with soy milk since this interferes with absorption. After taking your thyroid medicine: Wait 4 hours before eating or drinking anything that contains soy. Wait 4 hours before taking iron supplements, antacids that contain either calcium or aluminum hydroxide, or calcium supplements (regular amounts of cows milk are probably okay). Do not stop treatment on your own. If you do, your symptoms will return. Eat a high-fiber, low-calorie diet to relieve constipation and maintain a healthy weight. Get regular exercise. Talk to your doctor about an exercise program that is right for you. Follow Up with your doctor or as advised by our staff. Your thyroid level will need to be monitored for the rest of your life. During your routine visits, tell your doctor about any symptoms such as the ones listed below. Get Prompt Medical Attention if any of the following occur: Extreme fatigue Puffy hands, face, or feet Chest pain or trouble breathing Palpitations or irregular heartbeat Confusion or loss of consciousness Nitrofurantoin, Nitrofurantoin, Macrocrystalline Oral capsule What is this medicine? NITROFURANTOIN (nemesio osorio) is an antibiotic. It is used to treat urinary tract infections. How should I use this medicine? Take this medicine by mouth with a glass of water. Follow the directions on the prescription label. Take this medicine with food or milk. Take your doses at regular intervals. Do not take your medicine more often than directed. Do not stop taking except on your doctor's advice. Talk to your head strength and conditioning coach regarding the use of this medicine in children. While this drug may be prescribed for selected conditions, precautions do apply. What side effects may I notice from receiving this medicine? Side effects that you should report to your doctor or health animal care attendant as soon as possible: allergic reactions like skin rash or hives, swelling of the face, lips, or tongue chest pain cough difficulty breathing dizziness, drowsiness fever or infection joint aches or pains pale or blue-tinted skin redness, blistering, peeling or loosening of the skin, including inside the mouth tingling, burning, pain, or numbness in hands or feet unusual bleeding or bruising unusually weak or tired yellowing of eyes or skin Side effects that usually do not require medical attention (report to your doctor or health animal care attendant if they continue or are bothersome): dark urine diarrhea headache loss of appetite nausea or vomiting temporary hair loss What may interact with this medicine? antacids containing magnesium trisilicate probenecid quinolone antibiotics like ciprofloxacin, lomefloxacin, norfloxacin and ofloxacin sulfinpyrazone What if I miss a dose? If you miss a dose, take it as soon as you can. If it is almost time for your next dose, take only that dose. Do not take double or extra doses. Where should I keep my medicine? Keep out of the reach of children. Store at room temperature between 15 and 30 degrees C (59 and 86 degrees F). Protect from light. Throw away any unused medicine after the expiration date. What should I tell my health care provider before I take this medicine? They need to know if you have any of these conditions: anemia diabetes [id number] dehydrogenase deficiency kidney disease liver disease lung disease other chronic illness an unusual or allergic reaction to nitrofurantoin, other antibiotics, other medicines, foods, dyes or preservatives or trying to get breast-feeding What should I watch for while using this medicine? Tell your doctor or health animal care attendant if your symptoms do not improve or if you get new symptoms. Drink several glasses of water a day. If you are taking this medicine for a long time, visit your doctor for regular checks on your progress. If you are diabetic, you may get a false positive result for sugar in your urine with certain brands of urine tests. Check with your doctor. Diltiazem Hydrochloride Oral tablet What is this medicine? DILTIAZEM (dil OSIRIS a zem) is a calcium-channel suzanne. It affects the amount of calcium found in your heart and muscle cells. This relaxes your blood vessels, which can reduce the amount of work the heart has to do. This medicine is used to treat chest pain caused by angina. How should I use this medicine? Take this medicine by mouth with a glass of water. Follow the directions on the prescription label. This medicine is usually taken before meals and at bedtime. Take your doses at regular intervals. Do not take your medicine more often then directed. Do not stop taking except on the advice of your doctor or health animal care attendant. Talk to your head strength and conditioning coach regarding the use of this medicine in children. Special care may be needed. What side effects may I notice from receiving this medicine? Side effects that you should report to your doctor or health animal care attendant as soon as possible: allergic reactions like skin rash, itching or hives, swelling of the face, lips, or tongue confusion, mental depression feeling faint or lightheaded, falls pinpoint red spots on the skin redness, blistering, peeling or loosening of the skin, including inside the mouth slow, irregular heartbeat swelling of the ankles, feet unusual bleeding or bruising Side effects that usually do not require medical attention (report to your doctor or health animal care attendant if they continue or are bothersome): change in sex drive or performance constipation or diarrhea flushing of the face headache nausea, vomiting tired or weak trouble sleeping What may interact with this medicine? Do not take this medicine with any of the following: cisapride hawthorn pimozide ranolazine red yeast rice This medicine may also interact with the following medications: buspirone carbamazepine cimetidine cyclosporine digoxin local anesthetics or general anesthetics lovastatin medicines for anxiety or difficulty sleeping like midazolam and triazolam medicines for high blood pressure or heart problems quinidine rifampin, rifabutin, or rifapentine What if I miss a dose? If you miss a dose, take it as soon as you can. If it is almost time for your next dose, take only that dose. Do not take double or extra doses. Where should I keep my medicine? Keep out of the reach of children. Store at room temperature between 20 and 25 degrees C (68 and 77 degrees F). Protect from light. Keep container tightly closed. Throw away any unused medicine after the expiration date. What should I tell my health care provider before I take this medicine? They need to know if you have any of these conditions: heart problems, low blood pressure, irregular heartbeat liver disease previous heart attack an unusual or allergic reaction to diltiazem, other medicines, foods, dyes, or preservatives or trying to get breast-feeding What should I watch for while using this medicine? Check your blood pressure and pulse rate regularly. Ask your doctor or health animal care attendant what your blood pressure and pulse rate should be and when you should contact him or her. You may feel dizzy or lightheaded. Do not drive, use machinery, or do anything that needs mental alertness until you know how this medicine affects you. To reduce the risk of dizzy or fainting spells, do not sit or stand up quickly, especially if you are an older patient. Alcohol can make you more dizzy or increase flushing and rapid heartbeats. Avoid alcoholic drinks. Aspirin Oral tablet What is this medicine? ASPIRIN ( pir in) is a pain reliever. It is used to treat mild pain and fever. This medicine is also used as directed by a doctor to prevent and to treat heart attacks, to prevent strokes, and to treat arthritis or inflammation. How should I use this medicine? Take this medicine by mouth with a glass of water. Follow the directions on the package or prescription label. You can take this medicine with or without food. If it upsets your stomach, take it with food. Do not take your medicine more often than directed. Talk to your head strength and conditioning coach regarding the use of this medicine in children. While this drug may be prescribed for children as young as 12 years of age for selected conditions, precautions do apply. Children and teenagers should not use this medicine to treat chicken pox or flu symptoms unless directed by a doctor. Patients over 65 years old may have a stronger reaction and need a smaller dose. What side effects may I notice from receiving this medicine? Side effects that you should report to your doctor or health animal care attendant as soon as possible: allergic reactions like skin rash, itching or hives, swelling of the face, lips, or tongue breathing problems changes in hearing, ringing in the ears confusion general ill feeling or flu-like symptoms pain on swallowing redness, blistering, peeling or loosening of the skin, including inside the mouth or nose signs and symptoms of bleeding such as bloody or black, tarry stools; red or dark-brown urine; spitting up blood or brown material that looks like coffee grounds; red spots on the skin; unusual bruising or bleeding from the eye, gums, or nose trouble passing urine or change in the amount of urine unusually weak or tired yellowing of the eyes or skin Side effects that usually do not require medical attention (report to your doctor or health animal care attendant if they continue or are bothersome): diarrhea or constipation nausea, vomiting stomach gas, heartburn What may interact with this medicine? Do not take this medicine with any of the following medications: cidofovir ketorolac probenecid This medicine may also interact with the following medications: alcohol alendronate bismuth subsalicylate flavocoxid herbal supplements like feverfew, garlic, pito, ginkgo biloba, horse chestnut medicines for diabetes or glaucoma like acetazolamide, methazolamide medicines for gout medicines that treat or prevent blood clots like enoxaparin, heparin, ticlopidine, warfarin other aspirin and aspirin-like medicines NSAIDs, medicines for pain and inflammation, like ibuprofen or naproxen pemetrexed sulfinpyrazone varicella live vaccine What if I miss a dose? If you are taking this medicine on a regular schedule and miss a dose, take it as soon as you can. If it is almost time for your next dose, take only that dose. Do not take double or extra doses. Where should I keep my medicine? Keep out of the reach of children. Store at room temperature between 15 and 30 degrees C (59 and 86 degrees F). Protect from heat and moisture. Do not use this medicine if it has a strong vinegar smell. Throw away any unused medicine after the expiration date. What should I tell my health care provider before I take this medicine? They need to know if you have any of these conditions: anemia asthma bleeding problems child with chickenpox, the flu, or other viral infection diabetes gout if you frequently drink alcohol containing drinks kidney disease liver disease low level of vitamin K lupus smoke tobacco stomach ulcers or other problems an unusual or allergic reaction to aspirin, tartrazine dye, other medicines, dyes, or preservatives or trying to get breast-feeding What should I watch for while using this medicine? If you are treating yourself for pain, tell your doctor or health animal care attendant if the pain lasts more than 10 days, if it gets worse, or if there is a new or different kind of pain. Tell your doctor if you see redness or swelling. Also, check with your doctor if you have a fever that lasts for more than 3 days. Only take this medicine to prevent heart attacks or blood clotting if prescribed by your doctor or health animal care attendant. Do not take aspirin or aspirin-like medicines with this medicine. Too much aspirin can be dangerous. Always read the labels carefully. This medicine can irritate your stomach or cause bleeding problems. Do not smoke cigarettes or drink alcohol while taking this medicine. Do not lie down for 30 minutes after taking this medicine to prevent irritation to your throat. If you are scheduled for any medical or dental procedure, tell your healthcare provider that you are taking this medicine. You may need to stop taking this medicine before the procedure. You have been given the following additional information: Pat (P.A.T.) Bladder Infection, Female (Adult) Hypothyroidism Nitrofurantoin, Nitrofurantoin, Macrocrystalline Oral capsule Diltiazem Hydrochloride Oral tablet Aspirin Oral tablet (Electronically signed by Luis Dalton Dr. 07/10/2016 17:25)
--- NOTE | 2016-07-10 17:26 | ED MAR SUMMARY ---
..... Medication Administration Record [facility] [address] [place] [address] Patient: LILLIAM MELTON Visit ID: [id number] 76y, F Weight: 91.6 kg Height/Length: 67 in BMI: 31.7 ALLERGIES: Iodine, Penicillins, Shellfish-derived Products, Sulfa Drugs Start 14:12 07/06/2016 Elvin Gandhi,, Stop 15:45 07/06/2016 Nathanael Bertrand RMichael Medication Administered: IV NS (SALINE), Dose: IV Fluids over 4 hour(s), Rate: 1000 mL/hr, Dispensed: 1000 mL bag, Site: #1 left forearm. Medication Ordered: IV NS : initial bolus 500 mL (1000 mL/hr), then none - for X1 (NOW). Given 14:25 07/06/2016 Elvin Gandhi, Medication Administered: METOPROLOL [IVP] (METOPROLOL TARTRATE), Dose: 5 mg IVP over 2 minute(s), Site: #1 left forearm. Medication Ordered: Metoprolol IV 5 mg (HIGH ALERT MEDICATION, NOW). Given 14:46 07/06/2016 Nathanael Bertrand R.N. Medication Administered: METOPROLOL [IVP] (METOPROLOL TARTRATE), Dose: 5 mg IVP over 2 minute(s), Site: #1 left forearm. Medication Ordered: Metoprolol IV 5 mg (HIGH ALERT MEDICATION, NOW). Given 15:32 07/06/2016 Janice Quinteros R.N. Medication Administered: METOPROLOL [IVP] (METOPROLOL TARTRATE), Dose: 5 mg IVP over 5 minute(s), Site: #1 left forearm. Medication Ordered: Metoprolol IV 5 mg (HIGH ALERT MEDICATION, NOW). Given 15:45 07/06/2016 Nathanael Bertrand R.N. Medication Administered: METOPROLOL [IVP] (METOPROLOL TARTRATE), Dose: 5 mg IVP over 2 minute(s), Site: #1 left forearm. Medication Ordered: Metoprolol IV 5 mg (HIGH ALERT MEDICATION, NOW). Given 16:47 07/06/2016 Jerzy, Nathanael, R.N. Medication Administered: DILTIAZEM [IVP], Dose: 10 mg IVP over 2 minute(s), Site: #1 left forearm. Medication Ordered: Diltiazem IV 10 mg (HIGH ALERT MEDICATION, NOW). Given 17:07/06/2016 Nathanael Bertrand R.N. Medication Administered: NITROFURANTOIN [PO], Dose: 100 mg Capsules PO. Medication Ordered: Nitrofurantoin PO 100 mg (NOW). Given :07/06/2016 Nathanael Bertrand R.NRafal Medication Administered: ASPIRIN [PO], Dose: 325 mg Tablets PO. Medication Ordered: Aspirin PO 325 mg (Do not crush or chew, NOW).
--- NOTE | 2016-07-10 17:26 | ED MED RECONCILIATION SUMMARY ---
Patient: LILLIAM MELTON Medication Reconciliation Report [facility] VisitID: [id number] [address] [place] [address] 76y, F Registration Date/Time: 07/06/2016 Weight: 91.6 kg Height/Length: 67 in. BMI: 31.7 ALLERGIES: Iodine, Penicillins, Shellfish-derived Products, Sulfa Drugs The patient's Home Medications are listed below: CONTINUE TAKING THE FOLLOWING MEDICATIONS: CITALOPRAM 40MG HS Gabapentin Oral 300 mg, 3x a day Hydrochlorothiazide Oral 25 mg, daily Hydrocodone-Acetaminophen Oral Omeprazole Oral 20 mg, daily THE FOLLOWING MEDICATIONS NEED TO BE RECONCILED: Atorvastatin Calcium Oral Donepezil HCl Oral (5 mg) 1 tablet, daily Levothyroxine Sodium 70 mcg, DAILY The source(s) of the original Home Medication information: Not obtained. The following Medications were given to the patient in the Emergency Department: Metoprolol [IVP] IVP 5 mg, administered: 07/06/2016 2:25:00 PM IV NS IV Fluids bolus 0, then 1000 mL/hr, administered: 07/06/2016 2:12:00 PM Metoprolol [IVP] IVP 5 mg, administered: 07/06/2016 2:46:00 PM Metoprolol [IVP] IVP 5 mg, administered: 07/06/2016 3:32:00 PM Diltiazem [IVP] IVP 10 mg, administered: 07/06/2016 4:47:00 PM Nitrofurantoin [PO] PO 100 mg, administered: 07/06/2016 5:06:00 PM Aspirin [PO] PO 325 mg, administered: 07/06/2016 5:06:00 PM Metoprolol [IVP] IVP 5 mg, administered: 07/06/2016 3:45:00 PM The following Medications were prescribed to the patient: Nitrofurantoin 100 mg: take 1 capsule orally every 8 hours for 5 days. No refill.(Disp 15 caps. Substitution allowed.) -- Luis Dalton Dr. Aspirin 325 mg (available over the counter): take 1 orally every 24 hours. Dispense thirty (30). No refills. -- Luis Dalton Dr. Diltiazem. Dispense ten (10). No refills.(60 mg PO one every 8 hours as needed for fast heart rate) -- Luis Dalton Dr.
--- NOTE | 2016-07-10 17:26 | ED MAR SUMMARY ---
..... Medication Administration Record [facility] [address] [place] [address] Patient: LILLIAM MELTON Visit ID: [id number] 76y, F Weight: 91.6 kg Height/Length: 67 in BMI: 31.7 ALLERGIES: Iodine, Penicillins, Shellfish-derived Products, Sulfa Drugs Start 14:12 07/06/2016 Elvin Gandhi,, Stop 15:45 07/06/2016 Nathanael Bertrand RMichael Medication Administered: IV NS (SALINE), Dose: IV Fluids over 4 hour(s), Rate: 1000 mL/hr, Dispensed: 1000 mL bag, Site: #1 left forearm. Medication Ordered: IV NS : initial bolus 500 mL (1000 mL/hr), then none - for X1 (NOW). Given 14:25 07/06/2016 Elvin Gandhi, Medication Administered: METOPROLOL [IVP] (METOPROLOL TARTRATE), Dose: 5 mg IVP over 2 minute(s), Site: #1 left forearm. Medication Ordered: Metoprolol IV 5 mg (HIGH ALERT MEDICATION, NOW). Given 14:46 07/06/2016 Nathanael Bertrand R.N. Medication Administered: METOPROLOL [IVP] (METOPROLOL TARTRATE), Dose: 5 mg IVP over 2 minute(s), Site: #1 left forearm. Medication Ordered: Metoprolol IV 5 mg (HIGH ALERT MEDICATION, NOW). Given 15:32 07/06/2016 Janice Quinteros R.N. Medication Administered: METOPROLOL [IVP] (METOPROLOL TARTRATE), Dose: 5 mg IVP over 5 minute(s), Site: #1 left forearm. Medication Ordered: Metoprolol IV 5 mg (HIGH ALERT MEDICATION, NOW). Given 15:45 07/06/2016 Nathanael Bertrand R.N. Medication Administered: METOPROLOL [IVP] (METOPROLOL TARTRATE), Dose: 5 mg IVP over 2 minute(s), Site: #1 left forearm. Medication Ordered: Metoprolol IV 5 mg (HIGH ALERT MEDICATION, NOW). Given 16:47 07/06/2016 Jerzy, Nathanael, R.N. Medication Administered: DILTIAZEM [IVP], Dose: 10 mg IVP over 2 minute(s), Site: #1 left forearm. Medication Ordered: Diltiazem IV 10 mg (HIGH ALERT MEDICATION, NOW). Given 17:07/06/2016 Nathanael Bertrand R.N. Medication Administered: NITROFURANTOIN [PO], Dose: 100 mg Capsules PO. Medication Ordered: Nitrofurantoin PO 100 mg (NOW). Given :07/06/2016 Nathanael Bertrand R.NRafal Medication Administered: ASPIRIN [PO], Dose: 325 mg Tablets PO. Medication Ordered: Aspirin PO 325 mg (Do not crush or chew, NOW).
--- NOTE | 2016-07-10 17:26 | ED MED RECONCILIATION SUMMARY ---
Patient: LILLIAM MELTON Medication Reconciliation Report [facility] VisitID: [id number] [address] [place] [address] 76y, F Registration Date/Time: 07/06/2016 Weight: 91.6 kg Height/Length: 67 in. BMI: 31.7 ALLERGIES: Iodine, Penicillins, Shellfish-derived Products, Sulfa Drugs The patient's Home Medications are listed below: CONTINUE TAKING THE FOLLOWING MEDICATIONS: CITALOPRAM 40MG HS Gabapentin Oral 300 mg, 3x a day Hydrochlorothiazide Oral 25 mg, daily Hydrocodone-Acetaminophen Oral Omeprazole Oral 20 mg, daily THE FOLLOWING MEDICATIONS NEED TO BE RECONCILED: Atorvastatin Calcium Oral Donepezil HCl Oral (5 mg) 1 tablet, daily Levothyroxine Sodium 70 mcg, DAILY The source(s) of the original Home Medication information: Not obtained. The following Medications were given to the patient in the Emergency Department: Metoprolol [IVP] IVP 5 mg, administered: 07/06/2016 2:25:00 PM IV NS IV Fluids bolus 0, then 1000 mL/hr, administered: 07/06/2016 2:12:00 PM Metoprolol [IVP] IVP 5 mg, administered: 07/06/2016 2:46:00 PM Metoprolol [IVP] IVP 5 mg, administered: 07/06/2016 3:32:00 PM Diltiazem [IVP] IVP 10 mg, administered: 07/06/2016 4:47:00 PM Nitrofurantoin [PO] PO 100 mg, administered: 07/06/2016 5:06:00 PM Aspirin [PO] PO 325 mg, administered: 07/06/2016 5:06:00 PM Metoprolol [IVP] IVP 5 mg, administered: 07/06/2016 3:45:00 PM The following Medications were prescribed to the patient: Nitrofurantoin 100 mg: take 1 capsule orally every 8 hours for 5 days. No refill.(Disp 15 caps. Substitution allowed.) -- Luis Dalton Dr. Aspirin 325 mg (available over the counter): take 1 orally every 24 hours. Dispense thirty (30). No refills. -- Luis Dalton Dr. Diltiazem. Dispense ten (10). No refills.(60 mg PO one every 8 hours as needed for fast heart rate) -- Luis Dalton Dr.
== END 2016-07-06 17:30 ==
LOC: ED SRH 14:01
DX: I47.1 Supraventricular tachycardia (principal); N39.0 Urinary tract infection, site not specified; I48.91 Unspecified atrial fibrillation; E02 Subclinical iodine-deficiency hypothyroidism; Z87.891 Personal history of nicotine dependence; Z79.899 Other long term (current) drug therapy; Z79.891 Long term (current) use of opiate analgesic; Z88.0 Allergy status to penicillin; Z91.013 Allergy to seafood; Z88.2 Allergy status to sulfonamides
CPT/HCPCS: 90004; 90074; 90100; 90469; 90616; 93140; 94060; 95059